=== PATIENT | male | born 1960 ===

== ENCOUNTER 2023-08-17 08:50 | Day surgery (SDC) | payer OTHER ==
[~2023-08-17] VITALS: Ht 175.3 cm; Wt 80.7 kg
[~2023-08-17 08:50] MED LIST: CLARITIN10 M2 PO; PROBIOTIC1 TAB PO; SAW PALMETTO1 CAP PO; VITAMIN D PO
[2023-08-17] MEDS ORDERED: LACTATED RINGER'S 1,000 ML IV ONE (09:01)
[2023-08-17 10:39] VITALS: BP 106/73
[2023-08-17] MEDS ORDERED: PROPOFOL 500 MG/50 ML VIAL IV ONE (13:36)
[2023-08-17] MEDS ORDERED: GLYCOPYRROLATE 0.2 MG/ML IV ONE (13:36)
== END 2023-08-17 10:54 | disposition home or self-care (01) | DRG 951 ==
LOC: ENDO 08:50 → ORM 11:20 → ENDO 11:20 → ORM 12:30 → ENDO 12:30
PROVIDERS: ATTEND Internal Medicine Gastroenterology
PROC: 0DJD8ZZ Inspection of Lower Intestinal Tract, Via Natural or Artificial Opening Endoscopic (ICD-10-PCS; principal; 2023-08-17)
DX: Z12.11 Encounter for screening for malignant neoplasm of colon (principal); K57.30 Diverticulosis of large intestine without perforation or abscess without bleeding; K64.8 Other hemorrhoids; Z86.010 Personal history of colon polyps; Z80.0 Family history of malignant neoplasm of digestive organs